=== PATIENT | male | born 1960 | race Two or more races ===

== ENCOUNTER 2019-03-16 21:42 | Emergency (ER) | payer MEDICAID ==
[~2019-03-16] VITALS: Ht 177.8 cm; Wt 72.6 kg
[2019-03-16 21:55] VITALS: BP 122/83
--- NOTE | 2019-03-16 21:55 | NUR ---
ED Nurse Note: Patient was BIBA from home c/o dizziness after standing, pt reports having 2 beers. VSS
--- NOTE | 2019-03-16 22:29 | Emergency Room Report ---
History of Present Illness General Chief Complaint: Dizziness Source: Patient Present Illness HPI Is a 58-year-old male with no significant past medical history. He presents with chief complaint of dizziness. He was at home and said he felt lightheaded. He called 911. Had same symptoms 2 weeks ago and was taken to [facility]. Work-up was negative. He did have two 24 ounces beer tonight. Denies any focal deficit. Denies any slurred speech. Denied room spinning. Allergies: Coded Allergies: No Known Allergies (Unverified , 03/16/19) Patient History Past Medical History: see triage record, old chart reviewed Past Surgical History: other Pertinent Family History: none Social History: Reports: alcohol use Immunizations: other Reviewed Nursing Documentation: PMH: Agreed; PSxH: Agreed Nursing Documentation-PMH History Of Psychiatric Problem: Yes - depression Review of Systems Eye: Denies: eye pain, blurred vision ENT: Denies: ear pain, nose congestion, throat swelling Respiratory: Denies: cough, shortness of breath Cardiovascular: Denies: chest pain, palpitations Gastrointestinal: Denies: abdominal pain, diarrhea, nausea, vomiting Musculoskeletal: Denies: back pain, joint pain Skin: Denies: rash Neurological: Denies: headache, numbness Endocrine: Denies: increased thirst, increased urine Hematologic/Lymphatic: Denies: easy bruising All Other Systems: negative except mentioned in HPI Physical Exam Vital Signs Date Time Temp Pulse Resp B/P (MAP) Pulse Ox O2 Delivery O2 Flow Rate FiO2 03/16/19 21:37 97.7 100 18 122/83 (96) 98 Room Air Vitals normal Sp02 EP Interpretation: reviewed, normal General Appearance: well appearing, no apparent distress, alert, other - intoxicated Head: normocephalic, atraumatic Eyes: bilateral eye PERRL, bilateral eye EOMI ENT: hearing grossly normal, normal pharynx Neck: full range of motion, supple, no meningismus Respiratory: chest non-tender, lungs clear, normal breath sounds Cardiovascular #1: regular rate, rhythm, no murmur Gastrointestinal: normal bowel sounds, non tender, no mass, no organomegaly, no bruit, non-distended Musculoskeletal: back normal, gait/station normal, normal range of motion Psychiatric: mood/affect normal Medical Decision Making Diagnostic Impression: Primary Impression: Dizziness of unknown cause Additional Impression: Alcohol intoxication Qualified Codes: F10.920 - Alcohol use, unspecified with intoxication, uncomplicated ER Course Patient presents with dizziness but walking around without any difficulty. No focal deficit. Blood pressure normal. I suspect this is secondary to alcohol abuse. Will discharge home. Last Vital Signs Date Time Temp Pulse Resp B/P (MAP) Pulse Ox O2 Delivery O2 Flow Rate FiO2 03/16/19 21:37 97.7 100 18 122/83 (96) 98 Room Air Status: improved Disposition: HOME, SELF-CARE Condition: Stable Patient Instructions: Dizziness Additional Instructions: Abstain from alcohol. Follow-up with your doctor in 7 days. Return if worse. Jonn Kelly MD Mar 16, 2019 22:29
[2019-03-16 22:41] VITALS: BP 122/83
--- NOTE | 2019-03-16 22:43 | NUR ---
ED Nurse Note: Pt cleared by health care Provider for discharge. DC instructions/prescription was given and explained to pt and verbalized understanding of teachings. All medical deviecs such as ID band removed. Pt is AAO x4, ambulatory and left with all personal belongings.
== END 2019-03-16 22:45 | disposition home or self-care (01) ==
LOC: EDBD 21:42 → EMR 21:58
DX: R42 Dizziness and giddiness (principal); F10.920 Alcohol use, unspecified with intoxication, uncomplicated; F32.9 Major depressive disorder, single episode, unspecified
CPT/HCPCS: 99282

== ENCOUNTER 2019-05-26 12:56 | Emergency (ER) | payer MEDICAID ==
[~2019-05-26] VITALS: Ht 177.8 cm; Wt 74.8 kg
--- NOTE | 2019-05-26 12:57 | NUR ---
ED Nurse Note: Patient brought into ED from street, patient was walking on the street way to his home and sustained a abrasiona nd laceration on his chin and lower lip patient is alert awake x4 breathing unlabred and even, speaking in full sentences, patient reports he tripped and fell. patient has a cane and left knee brace. patient placed on a sole molding machine operator, stable vital signs.
--- NOTE | 2019-05-26 13:19 | Emergency Room Report ---
History of Present Illness General Chief Complaint: Multiple Trauma/Fall Source: Patient Present Illness HPI Patient presents with complaints of trauma and fall resulting in facial injuries patient has abrasion And trauma to the lower lip patient does consider himself an alcoholic drinks on a daily basis Reports that while trying to lift a laundry bag he fell forward injuring the facial area Patient also reports that he has an injured right knee which 'sometimes gives out on me' Denies any focal weakness denies any visual changes denies any vomiting or diarrhea Allergies: Coded Allergies: No Known Allergies (Unverified , 03/16/19) Patient History Past Medical History: see triage record Reviewed Nursing Documentation: PMH: Agreed; PSxH: Agreed Nursing Documentation-PM Past Medical History: No History, Except For History Of Psychiatric Problem: Yes - depression Review of Systems All Other Systems: negative except mentioned in HPI Physical Exam Vital Signs Date Time Temp Pulse Resp B/P (MAP) Pulse Ox O2 Delivery O2 Flow Rate FiO2 05/26/19 12:47 99.0 91 18 91/63 (72) 99 Room Air Sp02 EP Interpretation: reviewed, normal General Appearance: no apparent distress Head: other - Abrasion to the lower chin, small puncture wound to the lower lip secondarily healing Eyes: bilateral eye PERRL ENT: normal pharynx, no angioedema Neck: supple Respiratory: lungs clear, no respiratory distress, no retraction Cardiovascular #1: regular rate, rhythm Gastrointestinal: non tender Musculoskeletal: normal inspection, other - Patient does have a knee brace on the right knee Neurologic: alert, oriented x3, responsive Psychiatric: normal inspection Skin: other - As above Lymphatic: no adenopathy Medical Decision Making Diagnostic Impression: Primary Impression: Fall Additional Impression: Abrasion ER Course patient was asked with complaints of fall and facial trauma Patient provides a fairly specific description of his right leg giving out which happens intermittently also reports that if he drinks it happens more often He does consider himself an alcoholic Denies any lapse of consciousness denies any chest pain denies any focal weakness at this time Patient had baseline blood work initiated given multiple differentials of electrolyte pathology versus other traumatic injuries blood work at baseline levels,showing signs of pancytopenia consistent with his alcohol disease Imaging does not reveal any acute pathology I felt that given the patient's history of alcohol abuse and trauma He did meet criteria for acute imaging patient asking to be let go Is at baseline mental status GCS 15 speaking clearly And is dispositioned for close outpatient follow-up CBC: pancytopenia Chemistry: potassium 3.4 minimal decrease Rhythm Strip Diag. Results EP Interpretation: yes Rate: 66 Rhythm: NSR, no PVC's, no ectopy Last Vital Signs Date Time Temp Pulse Resp B/P (MAP) Pulse Ox O2 Delivery O2 Flow Rate FiO2 05/26/19 12:47 99.0 91 18 91/63 (72) 99 Room Air Status: improved Disposition: HOME, SELF-CARE Condition: Improved Scripts Unable to Obtain Active Prescriptions or Reported Meds Additional Instructions: Patient was provided with discharge paperwork, educated about findings, verbalizes understanding will require close follow-up in the next 2-3 days with primary physician otherwise return to the ER with any worsening symptoms Isela De DO May 26, 2019 13:19
--- NOTE | 2019-05-26 13:41 | NUR ---
ED Nurse Note: patient went to CT head
--- NOTE | 2019-05-26 14:25 | Diagnostic Imaging Report ---
Indications: Headache, status post trauma Technique: Spiral acquisitions obtained through the brain. Angled axial and coronal 5 x 5 mm slices were reconstructed. Total dose length product 1457 mGycm. CTDI vol(s) 62 mGy. Dose reduction achieved using automated exposure control Comparison: None. Findings: No acute intracranial hemorrhage or edema. No mass effect nor midline shift. There is a small patent cava septum pellucidum incidentally noted. 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 There is minimal age-related enlargement of the ventricles and extra axial CSF spaces. There is minimal periventricular deep white matter low-attenuation, consistent with chronic microvascular ischemic change. The orbits and sinuses are unremarkable. The mastoids are clear. The calvarium is intact. Impression: Chronic and age-related changes Negative for acute intracranial bleed or mass effect The CT scanner at [facility] is accredited by the [employer] and the scans are performed using protocols designed to limit radiation exposure to as low as reasonably achievable to attain images of sufficient resolution adequate for diagnostic evaluation.
[2019-05-26 14:30] LABS: HEMATOCRIT 35.9 % (42.0-52.0); HEMOGLOBIN 12.7 G/DL (14.2-18.0); MEAN CORPUSCULAR VOLUME 88 FL (80-99); PLATELET COUNT 99 K/UL (150-450); RED BLOOD COUNT 4.08 M/UL (4.70-6.10); RED CELL DISTRIBUTION WIDTH 11.2 % (11.6-14.8)
[2019-05-26] MEDS ORDERED: Neosporin Oint Ud Pkt TOPIC ONE ×2 (14:32→14:45)
[2019-05-26 14:33] VITALS: BP 108/78
--- NOTE | 2019-05-26 14:36 | NUR ---
ED Nurse Note: lower chin abrasion cleaned with normal salined and neopsorin applied as ordered by Dr. De.
[2019-05-26 14:42] LABS: ANION GAP 12 mmol/L (5-15); BLOOD UREA NITROGEN 13 mg/dL (7-18); CALCIUM 8.8 MG/DL (8.5-10.1); CARBON DIOXIDE 25 MMOL/L (21-32); CHLORIDE 104 MMOL/L (98-107); POTASSIUM 3.4 MMOL/L (3.5-5.1); SODIUM 141 MMOL/L (136-145)
[2019-05-26 15:10] VITALS: BP 108/78
--- NOTE | 2019-05-26 15:10 | NUR ---
ER DISCHARGE NOTE: Patient is cleared to be discharged per [facility], pt is aox4, on room air, with stable vital signs. pt was given dc and prescription instructions, pt was able to verbalize understanding, pt id band and iv site removed without complications. pt is able to ambulate with steady gait. pt took all belongings.
== END 2019-05-26 15:10 | disposition home or self-care (01) ==
LOC: EDBD 12:56 → EMR 13:20
DX: S00.81XA Abrasion of other part of head, initial encounter (principal); F32.9 Major depressive disorder, single episode, unspecified; S09.93XA Unspecified injury of face, initial encounter; W19.XXXA Unspecified fall, initial encounter; Y92.9 Unspecified place or not applicable
CPT/HCPCS: 36415; 70450; 80048; 85007; 85025; Z7502; 99284

== ENCOUNTER 2019-06-19 10:24 | Emergency (ER) | payer MEDICAID ==
[~2019-06-19] VITALS: Ht 177.8 cm; Wt 72.6 kg
[2019-06-19] MEDS ORDERED: NEURONTIN100 MG ORAL (10:28)
[2019-06-19] MEDS ORDERED: REMERON15 M1 ORAL (10:28)
[2019-06-19] MEDS ORDERED: SIMVASTATIN5 MG ORAL (10:28)
[2019-06-19] MEDS ORDERED: ZYLOPRIM100 MG ORAL (10:28)
[2019-06-19 10:48] LABS: BASOPHILS % (AUTO) 1.3 % (0.0-2.0); EOSINOPHILS % (AUTO) 1.2 % (0.0-3.0); HEMATOCRIT 35.4 % (42.0-52.0); HEMOGLOBIN 12.3 G/DL (14.2-18.0); LYMPHOCYTES % (AUTO) 46.1 % (20.0-45.0); MEAN CORPUSCULAR VOLUME 90 FL (80-99); MONOCYTES % (AUTO) 8.9 % (1.0-10.0); NEUTROPHILS % (AUTO) 42.4 % (45.0-75.0); PLATELET COUNT 109 K/UL (150-450); RED BLOOD COUNT 3.92 M/UL (4.70-6.10); RED CELL DISTRIBUTION WIDTH 12.2 % (11.6-14.8); WHITE BLOOD COUNT 3.8 K/UL (4.8-10.8)
--- NOTE | 2019-06-19 10:49 | NUR ---
ED Nurse Note: Patient brought in by ambulance from home due to feeling weak. Patient admitted to drinking alcohol everyday. + smell of alcohol. Patient reports no head injury. No visible head trauma noted. patient awake, alert, oriented x 4. Able to follow commands. Regular, unlabored breathing noted. Reports no N/V or BM with blood. Placed patient on compliance monitor. Call light within reach. Patient has hospital socks on. Instructed patient to stay in bed and asked patient to call for help if he needs to be OOB. Patient verbalized understanding of it. Bed in lowest position.
[2019-06-19 11:00] LABS: ANION GAP 8 mmol/L (5-15); BLOOD UREA NITROGEN 13 mg/dL (7-18); CALCIUM 8.5 MG/DL (8.5-10.1); CARBON DIOXIDE 32 MMOL/L (21-32); CHLORIDE 108 MMOL/L (98-107); CREATININE 0.9 MG/DL (0.55-1.30); POTASSIUM 3.5 MMOL/L (3.5-5.1); SODIUM 148 MMOL/L (136-145)
[2019-06-19 11:01] VITALS: BP 137/88
--- NOTE | 2019-06-19 11:02 | NUR ---
ED Nurse Note: Patient arrived here right knee brace. Per patient, patient had right joint knee replacement.
--- NOTE | 2019-06-19 11:05 | NUR ---
ED Nurse Note: sandwitches and juices provide as requested.
[2019-06-19 11:06] LABS: ALANINE AMINOTRANSFERASE 58 U/L (12-78); ALBUMIN 3.4 G/DL (3.4-5.0); ALBUMIN/GLOBULIN RATIO 0.9 (1.0-2.7); ALKALINE PHOSPHATASE 181 U/L (46-116); ASPARTATE AMINO TRANSFERASE 125 U/L (15-37); BILIRUBIN,TOTAL 0.5 MG/DL (0.2-1.0)
[2019-06-19] MEDS ORDERED: Metoclopramide 10mg/2ml Inj IVP ONE (11:30)
[2019-06-19] MEDS ORDERED: Meclizine 25mg tab ORAL ONE (11:30)
--- NOTE | 2019-06-19 11:31 | NUR ---
ED Nurse Note: Called concrete technician for CT head.
--- NOTE | 2019-06-19 11:44 | NUR ---
ED Nurse Note: Report given to OSMANY Rees. Dina, transporter here for CT head.
[2019-06-19 13:00] VITALS: BP 128/75
[2019-06-19] MEDS ORDERED: ONDANSETRON ODT4 MG BC (13:19)
[2019-06-19] MEDS ORDERED: RANITIDINE HCL150 MG ORAL (13:19)
--- NOTE | 2019-06-19 14:02 | Emergency Room Report ---
History of Present Illness General Chief Complaint: Generalized Weakness Source: Patient Present Illness HPI 61-year-old male presents ED for evaluation. Brought in by EMS from home. Complaining of dizziness started today. States he has been drinking alcohol. Notes nausea, denies vomiting. Denies chest pain. States he has fallen a few times. Questionable LOC. No other aggravating relieving factors. Denies any other associated symptoms Allergies: Coded Allergies: No Known Allergies (Unverified , 03/16/19) Patient History Past Medical History: HTN, psych hx Past Surgical History: none Pertinent Family History: none Social History: Reports: alcohol use; Denies: smoking, drug use Immunizations: UTD Reviewed Nursing Documentation: PMH: Agreed; PSxH: Agreed Nursing Documentation-PMH Hx Hypertension: Yes - HYPERLIPIDEMIA History Of Psychiatric Problem: Yes Review of Systems All Other Systems: negative except mentioned in HPI Physical Exam Vital Signs Date Time Temp Pulse Resp B/P (MAP) Pulse Ox O2 Delivery O2 Flow Rate FiO2 06/19/19 10:20 97.5 96 19 116/85 (95) 98 Room Air Sp02 EP Interpretation: reviewed, normal General Appearance: no apparent distress, alert, GCS 15, non-toxic Head: normocephalic, atraumatic Eyes: bilateral eye normal inspection, bilateral eye PERRL ENT: hearing grossly normal, normal pharynx, no angioedema, normal voice Neck: full range of motion, supple/symm/no masses Respiratory: chest non-tender, lungs clear, normal breath sounds, speaking full sentences Cardiovascular #1: regular rate, rhythm, no edema Cardiovascular #2: 2+ carotid (R), 2+ carotid (L), 2+ radial (R), 2+ radial (L) , 2+ dorsalis pedis (R), 2+ dorsalis pedis (L) Gastrointestinal: normal bowel sounds, non tender, soft, non-distended, no guarding, no rebound Rectal: deferred Genitourinary: normal inspection, no CVA tenderness Musculoskeletal: back normal, normal range of motion, gait/station normal, non- tender Neurologic: alert, motor strength/tone normal, oriented x3, sensory intact, responsive, speech normal Psychiatric: judgement/insight normal, memory normal, mood/affect normal, no suicidal/homicidal ideation Reflexes: 3+ bicep (R), 3+ bicep (L), 3+ tricep (R), 3+ tricep (L), 3+ knee (R) , 3+ knee (L) Lymphatic: no adenopathy Medical Decision Making Diagnostic Impression: Primary Impression: Alcohol intoxication Qualified Codes: F10.920 - Alcohol use, unspecified with intoxication, uncomplicated ER Course Hospital Course 59 yo M presents to ED c/o dizziness, + ETOH. ? fall Differential diagnoses include: Psychosis, EtOH, drug abuse Clinical course patient placed on stretcher. On monitor car operator. After initial history and physical ordered labs, IV fluids, EKG, meds, CT brain. Labs reviewed-electrolytes okay, no leukocytosis, hemoglobin/hematocrit stable, ETOH > 300 EKG - RBBB, no acute ischemic changes interpreted by me CT brain shows no acute pathology On reassessment symptoms improved. Discussed findings with patient will discharge to home. Safe for discharge for close outpatient follow-up. I will provide referrals. Family at bedside to take patient home i. I feel this is a highly complex case requiring extensive working including EKG/Rhythm strip, Xray/CT/US, Blood/urine lab work, repeat exams while in ED, and administration of strong opiates/narcotics for pain control, admission to hospital or close patient follow up. Diagnosis - alcohol intoxication Stable and discharged to home. Followup with PMD. Return to ED if symptoms recur or worsen Labs Test 06/19/19 10:30 White Blood Count 3.8 K/UL (4.8-10.8) Red Blood Count 3.92 M/UL (4.70-6.10) Hemoglobin 12.3 G/DL (14.2-18.0) Hematocrit 35.4 % (42.0-52.0) Mean Corpuscular Volume 90 FL (80-99) Mean Corpuscular Hemoglobin 31.4 PG (27.0-31.0) Mean Corpuscular Hemoglobin Concent 34.8 G/DL (32.0-36.0) Red Cell Distribution Width 12.2 % (11.6-14.8) Platelet Count 109 K/UL (150-450) Mean Platelet Volume 6.3 FL (6.5-10.1) Neutrophils (%) (Auto) 42.4 % (45.0-75.0) Lymphocytes (%) (Auto) 46.1 % (20.0-45.0) Monocytes (%) (Auto) 8.9 % (1.0-10.0) Eosinophils (%) (Auto) 1.2 % (0.0-3.0) Basophils (%) (Auto) 1.3 % (0.0-2.0) Sodium Level 148 MMOL/L (136-145) Potassium Level 3.5 MMOL/L (3.5-5.1) Chloride Level 108 MMOL/L (98-107) Carbon Dioxide Level 32 MMOL/L (21-32) Anion Gap 8 mmol/L (5-15) Blood Urea Nitrogen 13 mg/dL (7-18) Creatinine 0.9 MG/DL (0.55-1.30) Estimat Glomerular Filtration Rate > 60 mL/min (>60) Glucose Level 119 MG/DL (74-106) Calcium Level 8.5 MG/DL (8.5-10.1) Total Bilirubin 0.5 MG/DL (0.2-1.0) Aspartate Amino Transf (AST/SGOT) 125 U/L (15-37) Alanine Aminotransferase (ALT/SGPT) 58 U/L (12-78) Alkaline Phosphatase 181 U/L (46-116) Total Protein 7.4 G/DL (6.4-8.2) Albumin 3.4 G/DL (3.4-5.0) Globulin 4.0 g/dL Albumin/Globulin Ratio 0.9 (1.0-2.7) Salicylates Level 2.2 ug/mL (2.8-20) Urine Opiates Screen Negative (NEGATIVE) Acetaminophen Level < 2 MCG/ML (10-30) Urine Barbiturates Screen Negative (NEGATIVE) Phencyclidine (PCP) Screen Negative (NEGATIVE) Urine Amphetamines Screen Negative (NEGATIVE) Urine Benzodiazepines Screen Negative (NEGATIVE) Urine Cocaine Screen Negative (NEGATIVE) Urine Marijuana (THC) Screen Negative (NEGATIVE) Serum Alcohol 360 mg/dL EKG Diagnostic Results Rate: normal Rhythm: NSR ST Segments: other - RBBB ASA given to the pt in ED: No Rhythm Strip Diag. Results EP Interpretation: yes Rhythm: NSR, no PVC's, no ectopy CT/MRI/US Diagnostic Results CT/MRI/US Diagnostic Results : Imaging Test Ordered: CT Head Impression no acute process Last Vital Signs Date Time Temp Pulse Resp B/P (MAP) Pulse Ox O2 Delivery O2 Flow Rate FiO2 06/19/19 13:00 95 19 128/75 96 Room Air 06/19/19 11:01 96.8 Status: improved Disposition: HOME, SELF-CARE Condition: Stable Scripts Ranitidine Hcl* (ZANTAC*) 150 Mg Tablet 150 MG ORAL TWICE A DAY, #30 TAB Prov: Rod Ro MD 06/19/19 Ondansetron Odt* (ZOFRAN ODT*) 4 Mg Tab.rapdis 4 MG BC EVERY 6 HOURS PRN for Nausea & Vomiting, #20 TAB 0 Refills Prov: Rod Ro MD 06/19/19 Referrals: NON PHYSICIAN (PCP) [facility] Patient Instructions: Alcohol Intoxication, [id number] Rod Ro MD Jun 19, 2019 14:02
== END 2019-06-19 13:00 | disposition home or self-care (01) ==
LOC: EDBD 10:24 → EMR 10:41
DX: F10.920 Alcohol use, unspecified with intoxication, uncomplicated (principal); I10 Essential (primary) hypertension; E78.5 Hyperlipidemia, unspecified
CPT/HCPCS: 36415; 70450; 80053; 80307; 85025; 96361; 96374; 96375; G0480; G0481; Z7502; 99284

== ENCOUNTER 2019-07-12 20:08 | Emergency (ER) | payer MEDICAID ==
[~2019-07-12] VITALS: Ht 180.3 cm; Wt 68.0 kg
[~2019-07-12 20:08] MED LIST: NEURONTIN100 MG ORAL; ONDANSETRON ODT4 MG BC; RANITIDINE HCL150 MG ORAL; REMERON15 M1 ORAL; SIMVASTATIN5 MG ORAL; ZYLOPRIM100 MG ORAL
[2019-07-12 20:10] VITALS: BP 109/56
--- NOTE | 2019-07-12 20:10 | NUR ---
ED Nurse Note: Pt brought in from home by JANEE RA 67 for c/o weakness. Pt states both legs were feeling weak and numb and he was unable to stand. Per JANEE, pt was found on the ground at home. Pt has 20g IV on right forearm placed by JANEE on scene. Pt brought into ED with 500cc bag of NS infusing, given by LAFJacky. Pt is aaox4, breathing is normal and unlabored, no cardiac distress noted. Pt did come into ED with soiled pants, pt states he was unable to get to the restroom in time due to weakness. Pt placed on processing lead, pt cleaned and placed in gown for comfort. Will continue to monitor.
--- NOTE | 2019-07-12 20:15 | NUR ---
ED Nurse Note: Right knee brace noted.
--- NOTE | 2019-07-12 20:15 | NUR ---
ED Nurse Note: Pt denies any trauma or hitting his head. Pt also reports numbness in bilateral hands.
--- NOTE | 2019-07-12 20:26 | Emergency Room Report ---
History of Present Illness General Chief Complaint: Generalized Weakness Source: Patient (Baltazar Nino MD) Present Illness HPI Patient is a 59-year-old male who presents after increased generalized weakness. He was reportedly increased difficulty with respirations. Reportedly had a syncopal episode at home. He reports having increased bilateral leg cramping and difficulty with movements. He denies prior history of seizures. Reports being a smoker. Denies any prior cardiac history. (Baltazar Nino MD) Allergies: Coded Allergies: No Known Allergies (Unverified , 03/16/19) Patient History Past Medical History: see triage record Reviewed Nursing Documentation: PMH: Agreed; PSxH: Agreed (Baltazar Nino MD) Nursing Documentation-PMH Past Medical History: No History, Except For Hx Hypertension: Yes - HYPERLIPIDEMIA (Baltazar Nino MD) Review of Systems All Other Systems: negative except mentioned in HPI (Baltazar Nino MD) Physical Exam Vital Signs Date Time Temp Pulse Resp B/P (MAP) Pulse Ox O2 Delivery O2 Flow Rate FiO2 07/12/19 20:08 98.6 104 22 109/56 (73) 97 Room Air Sp02 EP Interpretation: reviewed, normal General Appearance: normal inspection, well appearing, no apparent distress, alert, GCS 15, thin, Chronically Ill Head: atraumatic ENT: normal ENT inspection, hearing grossly normal, normal voice Neck: normal inspection, full range of motion, supple, no bony tend Respiratory: normal inspection, lungs clear, normal breath sounds, no respiratory distress, no retraction, no wheezing Cardiovascular #1: regular rate, rhythm, no edema Gastrointestinal: normal inspection, normal bowel sounds, non tender, soft, no guarding, no hernia Genitourinary: no CVA tenderness Musculoskeletal: normal inspection, back normal, normal range of motion Neurologic: alert, lead javascript engineer III-XII nml as tested, responsive, speech normal, normal inspection, other - tremor Psychiatric: normal inspection, judgement/insight normal, mood/affect normal Skin: no rash (Baltazar Nino MD) Medical Decision Making Diagnostic Impression: Primary Impression: Alcohol withdrawal seizure without complication Additional Impressions: COPD (chronic obstructive pulmonary disease) Qualified Codes: J44.9 - Chronic obstructive pulmonary disease, unspecified CAP (community acquired pneumonia) Qualified Codes: J18.9 - Pneumonia, unspecified organism Alcoholic fatty liver Pulmonary nodules ER Course Patient presented after possible syncopal episode. Differential diagnosis includes not limited to syncope, anemia, aortic aneurysm, myocardial infarction among others. EKG interpreted by me showed normal sinus rhythm with a right bundle branch block with diffuse T wave inversion. Patient was placed on a monitoring tech. He was given IV fluids. CT angiogram of the chest was ordered due to the patient's recent syncope and lower extremity complaints.Patient will be endorsed to Dr. Kelly pending CT imaging. Labs Test 07/12/19 21:00 White Blood Count 5.4 K/UL (4.8-10.8) Red Blood Count 3.56 M/UL (4.70-6.10) Hemoglobin 11.3 G/DL (14.2-18.0) Hematocrit 32.2 % (42.0-52.0) Mean Corpuscular Volume 90 FL (80-99) Mean Corpuscular Hemoglobin 31.7 PG (27.0-31.0) Mean Corpuscular Hemoglobin Concent 35.0 G/DL (32.0-36.0) Red Cell Distribution Width 13.0 % (11.6-14.8) Platelet Count 217 K/UL (150-450) Mean Platelet Volume 5.7 FL (6.5-10.1) Neutrophils (%) (Auto) 67.4 % (45.0-75.0) Lymphocytes (%) (Auto) 16.6 % (20.0-45.0) Monocytes (%) (Auto) 12.6 % (1.0-10.0) Eosinophils (%) (Auto) 0.9 % (0.0-3.0) Basophils (%) (Auto) 2.5 % (0.0-2.0) Prothrombin Time 10.7 SEC (9.30-11.50) Prothromb Time International Ratio 1.0 (0.9-1.1) Activated Partial Thromboplast Time 25 SEC (23-33) (Baltazar Nino MD) ER Course This patient was signed out to me. Please see Dr. Nino dictation for the full H&P. Patient presents with seizure. He said he is an alcoholic. His alcohol level is only 83. I suspect this is alcohol withdrawal seizure. He also has a cough. His CT chest showed emphysema with left lower lobe infiltrate. He also has nodules in his lungs. This may be secondary to infection or tumor. Patient able for outpatient work-up. Explained this to the patient. He expressed understanding. He was tremulous but better after Ativan and Librium. He is willing to stop drinking. Will discharge home. (Jonn Kelly MD) CT/MRI/US Diagnostic Results CT/MRI/US Diagnostic Results : Imaging Test Ordered: CT chest, abdomen and pelvis Impression Read by radiologist. CT chest showed COPD. No PE. He has multiple pulmonary nodules. Left lower lobe infiltrate. CT abdomen showed hepatomegaly with fatty liver. (Jonn Kelly MD) Last Vital Signs Date Time Temp Pulse Resp B/P (MAP) Pulse Ox O2 Delivery O2 Flow Rate FiO2 07/12/19 20:08 98.6 104 22 109/56 (73) 97 Room Air (Baltazar Nino MD) Status: improved (Jonn Kelly MD) Disposition: HOME, SELF-CARE Condition: Stable Scripts Chlordiazepoxide (Chlordiazepoxide HCl) 25 Mg Capsule 25 MG ORAL THREE TIMES A DAY, #15 CAP 0 Refills Prov: Jonn Kelly MD 07/13/19 Levofloxacin* (LEVAQUIN*) 500 Mg Tablet 500 MG ORAL DAILY, #7 TAB Prov: Jonn Kelly MD 07/13/19 Albuterol Sulfate* (ALBUTEROL SULFATE MDI*) 8.5 Gm Hfa.aer.ad 2 PUFF INH Q4H PRN for cough/wheezing, #1 EA 0 Refills Prov: Jonn Kelly MD 07/13/19 Additional Instructions: Abstain from alcohol. Go to rehab. Follow-up with your doctor in 7 days. You have multiple pulmonary nodules in your lung. This will need further work-up. You may need to be referral to a specialist. Return if symptoms worsen. Baltazar Nino MD Jul 12, 2019 20:26 Jonn Kelly MD Jul 13, 2019 04:00
[2019-07-12] MEDS ORDERED: Omnipaue 350mg/ml 100ml vial INJ PRN ×2 (20:30)
--- NOTE | 2019-07-12 20:50 | NUR ---
ED Nurse Note: Blood drawn by RN and sent to lab.
[2019-07-12 21:16] LABS: BASOPHILS % (AUTO) 2.5 % (0.0-2.0); EOSINOPHILS % (AUTO) 0.9 % (0.0-3.0); HEMATOCRIT 32.2 % (42.0-52.0); HEMOGLOBIN 11.3 G/DL (14.2-18.0); LYMPHOCYTES % (AUTO) 16.6 % (20.0-45.0); MEAN CORPUSCULAR VOLUME 90 FL (80-99); MONOCYTES % (AUTO) 12.6 % (1.0-10.0); NEUTROPHILS % (AUTO) 67.4 % (45.0-75.0); PLATELET COUNT 217 K/UL (150-450); RED BLOOD COUNT 3.56 M/UL (4.70-6.10); WHITE BLOOD COUNT 5.4 K/UL (4.8-10.8)
[2019-07-12 21:34] LABS: ANION GAP 9 mmol/L (5-15); BLOOD UREA NITROGEN 14 mg/dL (7-18); CALCIUM 8.6 MG/DL (8.5-10.1); CARBON DIOXIDE 30 MMOL/L (21-32); CHLORIDE 110 MMOL/L (98-107); CREATININE 1.3 MG/DL (0.55-1.30); POTASSIUM 4.1 MMOL/L (3.5-5.1); SODIUM 149 MMOL/L (136-145)
--- NOTE | 2019-07-12 21:37 | NUR ---
ED Nurse Note: Pt able to urinate using urinal, urine specimen collected and sent to lab.
[2019-07-12 21:45] LABS: ALANINE AMINOTRANSFERASE 26 U/L (12-78); ALBUMIN 2.9 G/DL (3.4-5.0); ALBUMIN/GLOBULIN RATIO 0.8 (1.0-2.7); ALKALINE PHOSPHATASE 125 U/L (46-116); ASPARTATE AMINO TRANSFERASE 72 U/L (15-37); BILIRUBIN,TOTAL 0.3 MG/DL (0.2-1.0)
[2019-07-12] MEDS ORDERED: LORazepam Inj 2mg/ml 1ml IV ONE (21:45)
[2019-07-12 21:46] LABS: APPEARANCE,URINE CLEAR; BILIRUBIN, URINE NEGATIVE (NEGATIVE); COLOR,URINE PALE YELLOW; GLUCOSE, URINE (UA) NEGATIVE (NEGATIVE); KETONES,URINE NEGATIVE (NEGATIVE); LEUKOCYTE ESTERASE ,URINE NEGATIVE (NEGATIVE); NITRITE,URINE NEGATIVE (NEGATIVE); PH,URINE 7 (4.5-8.0); PROTEIN,URINE NEGATIVE (NEGATIVE); UROBILINOGEN,URINE 1 MG/DL (0.0-1.0)
--- NOTE | 2019-07-12 21:51 | NUR ---
ED Nurse Note: Pt taken to CT via [facility] by adarsh dugan.
[2019-07-12 22:05] VITALS: BP 145/91
--- NOTE | 2019-07-12 22:05 | NUR ---
ED Nurse Note: Pt returned from CT. Pt is in no acute distress, resting comfortably in bed. Will continue to monitor. Vss as charted.
--- NOTE | 2019-07-12 23:52 | Diagnostic Imaging Report ---
Indication: Chest and abdominal pain Technique: Continuous helical transaxial imaging of the chest, abdomen and pelvis was obtained from the thoracic inlet to the pubic symphysis during rapid intravenous contrast administration. Arterial phase of enhancement obtained. Coronal 2-D reformats were also obtained and maximum intensity projection images in multiple planes. Study obtained in a Siemens sensation [address] Total Dose length Product (DLP): 797.[address] Dose Index Volume (CTDIvol): 59.5 mGy Comparison: None Findings: CTA CHEST: There is no evidence of pulmonary embolus, aortic dissection or aneurysm. The heart is unremarkable. No adenopathy or abnormal fluid collections are identified. Paraseptal blebs and moderate emphysematous changes with areas of scattered hyperlucency demonstrated within the lungs primarily in the upper lobes. There is left posterior basal atelectasis present. No consolidation identified. CTA abdomen pelvis: In the lower part of the abdominal aorta just above the bifurcation there is a somewhat saccular-appearing aneurysm measuring about 3.7 cm. Aorta is calcified. Major branches of the abdominal aorta appear widely patent. The iliac arteries are unremarkable. Liver enhancement is patchy with areas of low attenuation involving the lateral segment the left lobe as well as the medial segment. These may be areas of focal fatty infiltration. There is generalized low attenuation of the liver. The gallbladder is contracted and not evaluated well. There is no biliary ductal dilatation identified. No hydronephrosis seen. No free fluid identified. Bowel gas pattern is nonobstructive. Normal appendix noted. Urinary bladder is unremarkable. There is no adrenal mass. IMPRESSION: No evidence of pulmonary embolus or aortic dissection. Saccular aneurysm distal abdominal aorta maximum diameter of 3.7 cm. Low attenuation of the liver with areas of more prominent low-attenuation probably focal fat. Pulmonary emphysema/COPD. [facility] has communicated the preliminary results to the Emergency Department. Their findings are largely concordant with this report. The CT scanner at [facility] is accredited by the [employer] and the scans are performed using dose optimization techniques as appropriate to a performed exam including Automatic Exposure control.
[2019-07-13] MEDS ORDERED: chlordiazePOXIDE 25mg Cap ORAL ONE
[2019-07-13] MEDS ORDERED: Azithromycin 250mg tab ORAL ONE (00:15)
[2019-07-13] MEDS ORDERED: cefTRIAXone 1 GM in NS 55 ML IVPB ONE (00:15)
--- NOTE | 2019-07-13 01:00 | NUR ---
ED Nurse Note: Pt provided nourishment and warm blanket for comfort.
[2019-07-13 02:42] VITALS: BP 140/99
[2019-07-13] MEDS ORDERED: LEVAQUIN500 MG ORAL (03:59)
[2019-07-13] MEDS ORDERED: ALBUTEROL SULF8.5 GM INH (03:59)
[2019-07-13] MEDS ORDERED: LIBRIUM25 MG ORAL (03:59)
[2019-07-13 05:45] VITALS: BP 146/92
--- NOTE | 2019-07-13 05:45 | NUR ---
ER DISCHARGE NOTE: Patient is cleared to be discharged per ERMD, pt is aox4, on room air, with stable vital signs. pt was given dc and prescription instructions, pt was able to verbalize understanding, pt id band and iv site removed without complications. pt stated he will call his daughter to pick him up. pt took all belongings.
== END 2019-07-13 05:45 | disposition home or self-care (01) ==
LOC: EDBD 20:08 → EDUNIT# 20:08 → EMR 20:43
DX: F10.239 Alcohol dependence with withdrawal, unspecified (principal); J44.9 Chronic obstructive pulmonary disease, unspecified; J18.9 Pneumonia, unspecified organism; K76.0 Fatty (change of) liver, not elsewhere classified; R91.8 Other nonspecific abnormal finding of lung field; R56.9 Unspecified convulsions; F17.200 Nicotine dependence, unspecified, uncomplicated; E78.5 Hyperlipidemia, unspecified; I45.10 Unspecified right bundle-branch block
CPT/HCPCS: 36415; 71275; 74174; 80053; 80307; 81001; 83690; 83880; 84443; 84484; 85025; 85610; 85730; 93005; 96365; 96375; G0480; J0696; Q0144; Q9967; Z7502; 99284

== ENCOUNTER 2019-07-26 22:53 | Emergency (ER) | payer MEDICAID ==
[~2019-07-26] VITALS: Ht 182.9 cm; Wt 77.1 kg
[~2019-07-26 22:53] MED LIST changes: +ALBUTEROL SULF8.5 GM INH; +LEVAQUIN500 MG ORAL; +LIBRIUM25 MG ORAL
[2019-07-26 23:00] VITALS: BP 170/86
--- NOTE | 2019-07-26 23:00 | NUR ---
ED Nurse Note: Pt brought in by JANEE Blevins from home for c/o R sided back pain onset 5 days ago. Pt states pain is 3/10, aching in nature and is exacerbated with movement. Pt denies any injury or trauma to back. Pt is ambulatory with cane. Knee brace noted to R leg. Pt is aaox4, no cardiac or respiratory distress noted. Will continue to monitor.
--- NOTE | 2019-07-26 23:03 | Emergency Room Report ---
History of Present Illness General Chief Complaint: Right flank pain Source: Patient Present Illness HPI 59-year-old male presents with right flank pain that started 5 days ago no inciting factor, aggravated with movement alleviated with rest severity is moderate, intermittent, he describes it is achy he is a former smoker no fevers no chills no dysuria, no diarrhea patient presents for evaluation Allergies: Coded Allergies: No Known Allergies (Unverified , 03/16/19) Patient History Past Medical History: see triage record Social History: Reports: smoking Reviewed Nursing Documentation: PMH: Agreed; PSxH: Agreed Nursing Documentation-PMH Hx Hypertension: Yes - HYPERLIPIDEMIA Review of Systems All Other Systems: negative except mentioned in HPI Physical Exam Sp02 EP Interpretation: reviewed, normal General Appearance: well appearing, no apparent distress, alert Head: normocephalic, atraumatic Eyes: bilateral eye PERRL, bilateral eye EOMI ENT: uvula midline, moist mucus membranes Neck: supple, thyroid normal, supple/symm/no masses Respiratory: lungs clear, no respiratory distress, no retraction, no accessory muscle use Cardiovascular #1: normal peripheral pulses, regular rate, rhythm, no edema, no gallop, no murmur Gastrointestinal: non tender, soft, no guarding, no rebound Musculoskeletal: normal inspection, other - Right lower back shoe operator to palpation Neurologic: alert, oriented x3 Psychiatric: mood/affect normal Skin: no rash, warm/dry Medical Decision Making Diagnostic Impression: Primary Impression: Low back pain Qualified Codes: M54.5 - Low back pain ER Course 59-year-old male presents with right flank pain, differential diagnosis includes muscle strain, AAA, diverticulitis, appendicitis CT scan shows no change in his aneurysm no leakage Patient felt better with pain control and Lidoderm patch Counseled patient about aneurysm and following up with vascular surgery Disposition home with return precautions no red flags of back pain Laboratory Tests Test 07/26/19 23:15 07/26/19 23:30 White Blood Count 4.0 K/UL (4.8-10.8) L Red Blood Count 3.85 M/UL (4.70-6.10) L Hemoglobin 12.4 G/DL (14.2-18.0) L Hematocrit 35.6 % (42.0-52.0) L Mean Corpuscular Volume 93 FL (80-99) Mean Corpuscular Hemoglobin 32.3 PG (27.0-31.0) H Mean Corpuscular Hemoglobin Concent 34.9 G/DL (32.0-36.0) Red Cell Distribution Width 12.6 % (11.6-14.8) Platelet Count 202 K/UL (150-450) Mean Platelet Volume 6.1 FL (6.5-10.1) L Neutrophils (%) (Auto) 48.1 % (45.0-75.0) Lymphocytes (%) (Auto) 40.6 % (20.0-45.0) Monocytes (%) (Auto) 8.1 % (1.0-10.0) Eosinophils (%) (Auto) 1.8 % (0.0-3.0) Basophils (%) (Auto) 1.4 % (0.0-2.0) Prothrombin Time 10.3 SEC (9.30-11.50) Prothrombin Time INR 1.0 (0.9-1.1) PTT 25 SEC (23-33) Sodium Level 149 MMOL/L (136-145) H Potassium Level 3.2 MMOL/L (3.5-5.1) L Chloride Level 110 MMOL/L (98-107) H Carbon Dioxide Level 31 MMOL/L (21-32) Anion Gap 8 mmol/L (5-15) Blood Urea Nitrogen 17 mg/dL (7-18) Creatinine 0.8 MG/DL (0.55-1.30) Estimate Glomerular Filtration Rate > 60 mL/min (>60) Glucose Level 92 MG/DL (74-106) Calcium Level 8.6 MG/DL (8.5-10.1) Total Bilirubin 0.3 MG/DL (0.2-1.0) Aspartate Amino Transferase (AST) 76 U/L (15-37) H Alanine Aminotransferase (ALT) 45 U/L (12-78) Alkaline Phosphatase 115 U/L (46-116) Total Protein 7.4 G/DL (6.4-8.2) Albumin 3.0 G/DL (3.4-5.0) L Globulin 4.4 g/dL Albumin/Globulin Ratio 0.7 (1.0-2.7) L Lipase 509 U/L (73-393) H Urine Color Pale yellow Urine Appearance Clear Urine pH 8 (4.5-8.0) Urine Specific [place] 1.015 (1.005-1.035) Urine Protein Negative (NEGATIVE) Urine Glucose (UA) Negative (NEGATIVE) Urine Ketones Negative (NEGATIVE) Urine Blood Negative (NEGATIVE) Urine Nitrite Negative (NEGATIVE) Urine Bilirubin Negative (NEGATIVE) Urine Urobilinogen Normal MG/DL (0.0-1.0) Urine Leukocyte Esterase Negative (NEGATIVE) CT/MRI/US Diagnostic Results CT/MRI/US Diagnostic Results : Impression Procedure: CT Abdomen Pelvis w/Contrast CT ABDOMEN + PELVIS With Contrast: Compared to 07/12/19. A somewhat irregular area of decreased density is seen in the medial segment of the left lobe of the liver. Enhancing vessels appear to course through this area and this is likely related to some focal fatty infiltration. This has a similar appearance compared to the prior exam. Small low-density lesions in the liver which are too small to adequately characterize. Small low-density lesions in the kidneys which are too small to adequately characterize. The intra-abdominal organs are otherwise unremarkable. The appendix is normal. No evidence for bowel related inflammatory changes. No evidence for significant bowel loop dilation to suggest an obstructive process. Trace amount of nonspecific free fluid in the pelvis. No evidence for free intraperitoneal gas. Mild atelectasis at the lung bases. Infrarenal abdominal aortic aneurysm measuring 3.5 cm in maximum transverse dimensions. No evidence for surrounding hematoma to suggest aneurysm rupture. No evidence for aortic dissection. Sclerosis of the femoral heads which is likely related to avascular necrosis. Degenerative changes of the thoracolumbar spine. Dictated By: Zaheer Bullock MD Electronically Signed By: Signed Date/Time CC: Disposition: HOME, SELF-CARE Condition: Stable Scripts Lidocaine Patch* (Lidoderm Patch*) 1 Each Adh..patch 1 PATCH TOPIC DAILY, #7 PATCH 0 Refills Patch(es) may remain in place for up to 12 hours in any 24-hour period. Prov: Kip Malcolm MD 07/27/19 Methocarbamol* (ROBAXIN-750*) 750 Mg Tablet 750 MG PO QID, #28 TAB 0 Refills Prov: Kip Malcolm MD 07/27/19 Ibuprofen* (MOTRIN*) 600 Mg Tablet 600 MG ORAL Q8H PRN for For Pain, #30 TAB 0 Refills Prov: Kip Malcolm MD 1/6/20 Referrals: [facility] Patient Instructions: Abdominal Aortic Aneurysm, Back Pain, Adult, [id number] Additional Instructions: The patient was provided with discharge instructions, notified to follow-up with a primary care doctor and or specialist in the next 24-48 hours, and to return to the ED if they have worsening of their symptoms. Please note that this report is being documented using DRAGON technology. This can lead to erroneous entry secondary to incorrect interpretation by the dictating instrument. PLEASE FOLLOW-UP WITH VASCULAR SURGERY YOU HAVE AN ANEURYSM 3.5CM NEEDS TO BE FOLLOWED OVER TIME. PLEASE QUIT SMOKING Kip Malcolm MD Jul 26, 2019 23:03
[2019-07-26] MEDS ORDERED: Hydromorphone 0.5mg/0.5ml inj IVP ONE (23:15)
[2019-07-26] MEDS ORDERED: Acetaminophen 500mg (ES) tab ORAL ONE (23:15)
[2019-07-26] MEDS ORDERED: Omnipaque-300 100ml vial INJ PRN (23:15)
[2019-07-26 23:48] LABS: APPEARANCE,URINE CLEAR; BILIRUBIN, URINE NEGATIVE (NEGATIVE); COLOR,URINE PALE YELLOW; GLUCOSE, URINE (UA) NEGATIVE (NEGATIVE); KETONES,URINE NEGATIVE (NEGATIVE); LEUKOCYTE ESTERASE ,URINE NEGATIVE (NEGATIVE); NITRITE,URINE NEGATIVE (NEGATIVE); PH,URINE 8 (4.5-8.0); PROTEIN,URINE NEGATIVE (NEGATIVE); UROBILINOGEN,URINE NORMAL MG/DL (0.0-1.0)
[2019-07-26 23:52] LABS: BASOPHILS % (AUTO) 1.4 % (0.0-2.0); EOSINOPHILS % (AUTO) 1.8 % (0.0-3.0); HEMATOCRIT 35.6 % (42.0-52.0); HEMOGLOBIN 12.4 G/DL (14.2-18.0); LYMPHOCYTES % (AUTO) 40.6 % (20.0-45.0); MEAN CORPUSCULAR VOLUME 93 FL (80-99); MONOCYTES % (AUTO) 8.1 % (1.0-10.0); NEUTROPHILS % (AUTO) 48.1 % (45.0-75.0); PLATELET COUNT 202 K/UL (150-450); RED BLOOD COUNT 3.85 M/UL (4.70-6.10); RED CELL DISTRIBUTION WIDTH 12.6 % (11.6-14.8)
[2019-07-27] LABS: ANION GAP 8 mmol/L (5-15); BLOOD UREA NITROGEN 17 mg/dL (7-18); CALCIUM 8.6 MG/DL (8.5-10.1); CARBON DIOXIDE 31 MMOL/L (21-32); CHLORIDE 110 MMOL/L (98-107); CREATININE 0.8 MG/DL (0.55-1.30); POTASSIUM 3.2 MMOL/L (3.5-5.1); SODIUM 149 MMOL/L (136-145)
[2019-07-27 00:05] LABS: ALANINE AMINOTRANSFERASE 45 U/L (12-78); ALBUMIN/GLOBULIN RATIO 0.7 (1.0-2.7); ALKALINE PHOSPHATASE 115 U/L (46-116); ASPARTATE AMINO TRANSFERASE 76 U/L (15-37); BILIRUBIN,TOTAL 0.3 MG/DL (0.2-1.0)
--- NOTE | 2019-07-27 01:25 | Diagnostic Imaging Report ---
Clinical Indication: Abdominal pain Technique: No oral contrast utilized, per emergency room physician request IV administration nonionic contrast. Venous phase spiral acquisition obtained through the abdomen and pelvis. Multiplanar reconstructions were generated. Total dose length product 556 mGycm. CTDIvol(s) 10 mGy. Dose reduction achieved using automated exposure control Comparison: 07/12/2019 CT angiogram Findings: The appendix is normal. No small bowel distention. No evidence of diverticulosis or diverticulitis. Distal esophagus, stomach, duodenum are unremarkable. There is trace pelvic fluid. No free or loculated intraperitoneal gas. There is an area of hypoattenuation involving segments 4A and 4B of the left hepatic lobe. This is somewhat ill-defined, measures roughly 5 x 2.2 x 4.3 cm. This is also evident, although less so, on the previous study. Liver also demonstrates scattered subcentimeter low-attenuation lesions which are too small to characterize. The gallbladder, bile ducts, pancreas, spleen, adrenals, right kidney are unremarkable. Subcentimeter low-attenuation lesions are seen in the left kidney which are too small to characterize. No retroperitoneal or mesenteric mass or adenopathy. There is a focal eccentric aneurysm of the infrarenal abdominal aorta which measures 3.6 cm maximal dimension, also demonstrated previously. The common iliac arteries are ectatic bilaterally. The bladder is unremarkable. No pelvic mass or adenopathy. The bones demonstrate mild degenerative spondylosis changes. There are focal sclerotic changes of the femoral heads and slight narrowing of the bilateral hip joints. The included lung bases demonstrate posterior dependent atelectatic changes. The heart is borderline enlarged. Impression: No definite acute abnormality Area of hypoattenuation in the left hepatic lobe, similar to prior 07/12/2019 study, most likely an area of geographic focal fatty change 3.6 cm eccentric saccular infrarenal abdominal aortic aneurysm. No evidence of leakage or rupture Sclerotic changes of the bilateral femoral heads, raises possibility of avascular necrosis. Consider further evaluation with plain radiographs Posterior dependent pulmonary atelectatic changes Cardiomegaly Trace free pelvic fluid, nonspecific Subcentimeter low-attenuation liver and left renal lesions, too small to characterize, most likely benign simple cysts. No further follow-up necessary. This agrees with the preliminary interpretation provided overnight by [facility]. The CT scanner at [facility] is accredited by the [employer] and the scans are performed using protocols designed to limit radiation exposure to as low as reasonably achievable to attain images of sufficient resolution adequate for diagnostic evaluation.
[2019-07-27] MEDS ORDERED: ROBAXIN-750750 MG PO (02:02)
[2019-07-27] MEDS ORDERED: LIDODERM700 M1 TOPIC (02:02)
[2019-07-27] MEDS ORDERED: IBUPROFEN600 MG ORAL (02:02)
[2019-07-27 02:15] VITALS: BP 150/74
[2019-07-27] MEDS ORDERED: DiphenhydrAMINE 50mg/ml Inj IVP ONE (02:15)
--- NOTE | 2019-07-27 02:15 | NUR ---
ER DISCHARGE NOTE: Patient is cleared to be discharged per ERMD, pt is aox4, on room air, with stable vital signs. pt was given dc and prescription instructions, pt was able to verbalize understanding, pt id band and iv site removed without complications. pt is able to ambulate with steady gait. pt took all belongings.
== END 2019-07-27 02:15 | disposition home or self-care (01) ==
LOC: EDBD 22:53 → EDUNIT# 22:53 → EMR 23:27
DX: M54.5 Low back pain (principal); E78.5 Hyperlipidemia, unspecified; F17.200 Nicotine dependence, unspecified, uncomplicated; J98.11 Atelectasis
CPT/HCPCS: 36415; 74177; 80053; 81003; 83690; 85025; 85610; 85730; 96361; 96374; 96375; J1170; J1200; J2405; J7030; Q9967; Z7502; 99284

== ENCOUNTER 2020-01-05 20:53 | Emergency (ER) | payer MEDICAID ==
[~2020-01-05] VITALS: Ht 185.4 cm; Wt 70.8 kg
[~2020-01-05 20:53] MED LIST changes: +IBUPROFEN600 MG ORAL; +LIDODERM700 M1 TOPIC; +ROBAXIN-750750 MG PO
--- NOTE | 2020-01-05 21:54 | Emergency Room Report ---
History of Present Illness General Chief Complaint: Laceration Present Illness HPI Patient is a 59-year-old male presents after increased right-sided knee pain as well as limb pain after recent injury. He had recent alcohol intake and had fallen onto his face. He reports having prior history of knee replacement surgery. Had last tetanus vaccine approximately 5 years ago. Denies loss of consciousness. He states he tripped while walking. Had recent been having increased pain to the right knee after falling. He denies any other locations of injury denies any headache or nausea or vomiting. He had a recent ER visit after alcohol intoxication. Denies any current complaints. Allergies: Coded Allergies: No Known Allergies (Unverified , 03/16/19) COVID-19 Screening Contact w/high risk pt: No Recent Travel to affected area: No Experienced COVID-19 symptoms?: No COVID-19 Testing performed DRUG AND ALCOHOL TREATMENT SPECIALIST: No Patient History Past Medical History: see triage record Reviewed Nursing Documentation: PMH: Agreed; PSxH: Agreed Nursing Documentation-PMH Hx Hypertension: Yes - HYPERLIPIDEMIA History Of Psychiatric Problem: Yes Review of Systems All Other Systems: negative except mentioned in HPI Physical Exam Vital Signs Date Time Temp Pulse Resp B/P (MAP) Pulse Ox O2 Delivery O2 Flow Rate FiO2 01/05/20 20:53 97.5 86 18 141/85 (103) 98 Room Air Sp02 EP Interpretation: reviewed, normal General Appearance: normal inspection, well appearing, no apparent distress, alert, GCS 15 Head: atraumatic ENT: normal ENT inspection, hearing grossly normal, normal voice, other - Superficial laceration to the lower lip approximately 0.5 cm. Neck: normal inspection, full range of motion, supple, no bony tend Respiratory: normal inspection, lungs clear, normal breath sounds, no respiratory distress, no retraction, no wheezing Cardiovascular #1: regular rate, rhythm, no edema Gastrointestinal: normal inspection, normal bowel sounds, non tender, soft, no guarding, no hernia Genitourinary: no CVA tenderness Musculoskeletal: normal inspection, back normal, normal range of motion Neurologic: alert, motor strength/tone normal, home sales service professional III-XII nml as tested, oriented x3, responsive, speech normal, normal inspection Psychiatric: normal inspection, judgement/insight normal, mood/affect normal Medical Decision Making Diagnostic Impression: Primary Impression: Alcohol intoxication Additional Impressions: Fall Laceration Contusion of right knee ER Course Patient present after fall. Differential diagnosis includes not limited to fracture, contusion, sprain among others. Patient's laceration does not appear to require suturing. Patient has up-to-date tetanus vaccine and appears to be stable for outpatient management. Patient will be discharged home. X-ray imaging was ordered due to a recent injury to his knee. Patient was able to ambulate with a steady gait despite recent alcohol intake. X-ray imaging showed postsurgical changes without evident acute fracture. Patient appears to be stable for outpatient management. He was given prescription for medications for discomfort. He was advised to continue to ice the area and follow-up with his orthopedic doctor for recheck. Patient was offered suturing for his face which he declined. Patient was advised to return if worse. The patient is advised to follow up with primary care doctor in 1-2 days. Patient is advised to return if any worsening condition or if any changes in status that are concerning. This report is dictated with [employer] armature straightener software which may occasionally lead to discrepancies related to use of this software. Last Vital Signs Date Time Temp Pulse Resp B/P (MAP) Pulse Ox O2 Delivery O2 Flow Rate FiO2 01/05/20 20:53 97.5 86 18 141/85 (103) 98 Room Air Status: improved Disposition: HOME, SELF-CARE Condition: Stable Referrals: [facility],REFERRING (PCP) Baltazar Nino MD Jan 05, 2020 21:54
[2020-01-05] MEDS ORDERED: Acetaminophen 500mg (ES) tab ORAL ONE (22:00)
[2020-01-05 22:15] VITALS: BP 149/91
[2020-01-05 22:25] VITALS: BP 149/91
--- NOTE | 2020-01-06 10:11 | Diagnostic Imaging Report ---
EXAM: X-RAY XRAY Knee 3v R CLINICAL HISTORY: Knee pain. COMPARISON: None FINDINGS: Total of 3 views of the right knee were obtained. There is total knee prosthesis in place in anatomic alignment. No sign of fracture or loosening of the hardware. [place] bony structures are intact. There is sclerotic density in the distal femoral shaft partially included. Question enchondroma or bone infarct. Joint spaces are unremarkable. Surrounding soft tissue is normal. IMPRESSION: RIGHT KNEE PROSTHESIS IN ANATOMIC ALIGNMENT. NO ACUTE FRACTURE OR MALALIGNMENT. SCLEROTIC DENSITY DISTAL FEMORAL SHAFT PARTIALLY INCLUDED. QUESTION POSSIBLE ENCHONDROMA OR BONE INFARCT.
== END 2020-01-05 22:25 | disposition home or self-care (01) ==
LOC: EDBD 20:53 → EMR 21:19
DX: S80.01XA Contusion of right knee, initial encounter (principal); F10.129 Alcohol abuse with intoxication, unspecified; Z96.651 Presence of right artificial knee joint; S01.511A Laceration without foreign body of lip, initial encounter; W01.0XXA Fall on same level from slipping, tripping and stumbling without subsequent striking against object, initial encounter; Y92.9 Unspecified place or not applicable; E78.5 Hyperlipidemia, unspecified; I10 Essential (primary) hypertension
CPT/HCPCS: 73562; Z7502; 99283

== ENCOUNTER 2020-04-30 16:23 | Emergency (ER) | payer MEDICAID ==
[~2020-04-30] VITALS: Ht 175.3 cm; Wt 72.6 kg
--- NOTE | 2020-04-30 16:39 | Emergency Room Report ---
History of Present Illness General Chief Complaint: Alcohol Intoxication Source: Medical Record, EMS Present Illness HPI Disclaimer: Please note that this report is being documented using DRAGON technology. This can lead to erroneous entry secondary to incorrect interpretation by the dictating instrument. HPI: 60-year-old male brought in after reported fall and altered mental status. Per EMS, the patient's friend called from home stating the patient had drank too much and was difficult to arouse. Also noted a fall but unsure under which circumstances. Patient is unable to provide any history at this time. Review of chart shows the patient has prior visits for alcohol abuse. No anticoagulants found in chart. PMH: Alcohol abuse PSH: Unable to obtain from patient Allergies: Unable to obtain from patient Social Hx: History of alcohol abuse in chart Allergies: Coded Allergies: No Known Allergies (Unverified , 03/16/19) COVID-19 Screening Contact w/high risk pt: No Recent Travel to affected area: No Experienced COVID-19 symptoms?: No COVID-19 Testing performed CHARGE COORDINATOR: No Nursing Documentation-PMH Past Medical History: No History, Except For Hx Hypertension: Yes - HYPERLIPIDEMIA Review of Systems All Other Systems: limited - Unable to obtain from patient due to clinical condition Physical Exam Vital Signs Date Time Temp Pulse Resp B/P (MAP) Pulse Ox O2 Delivery O2 Flow Rate FiO2 04/30/20 16:23 98.2 84 14 115/76 (89) 99 Room Air General: Somnolent, arousable to painful stimuli HEENT: Normocephalic, atraumatic. There are no scalp or face hematomas, lacerations or abrasions. No tenderness or soft tissue swelling over the facial bones. EOMI. PERRLA. No septal hematoma. No oral lacerations. No malocclusion Neck: Supple, trachea midline. Arrives without cervical collar Chest Wall: No tenderness, no deformity, no crepitus CV: RRR. S1 and S2 normal. No murmur appreciated Resp: Normal work of breathing. No cough, wheezing or crackles appreciated Abd: Soft, nontender, nondistended Skin: Intact. No abrasions, laceration or rash over the exposed skin MSK: Normal tone and bulk. No obvious deformity. Neuro: Somnolent but arousable to pain. GCS 10. Spine: There is no step-off or deformity in the cervical spine. Medical Decision Making Diagnostic Impression: Primary Impression: Alcohol intoxication ER Course 60-year-old male brought in for evaluation of altered mental status suspected alcohol abuse as well as a fall. Unknown circumstances regarding fall with sign s of trauma however CT scan was obtained to evaluate for intracranial injury. No evidence of acute intracranial injury. Alcohol level elevated though metabolic panel within normal limits. Will discharge once clinically sober and ambulatory. Laboratory Tests Test 04/30/20 17:00 Sodium Level 143 MMOL/L (136-145) Potassium Level 3.5 MMOL/L (3.5-5.1) Chloride Level 107 MMOL/L (98-107) Carbon Dioxide Level 27 MMOL/L (21-32) Anion Gap 9 mmol/L (5-15) Blood Urea Nitrogen 11 mg/dL (7-18) Creatinine 1.1 MG/DL (0.55-1.30) Estimated Glomerular Filtration Rate > 60 mL/min (>60) Glucose Level 90 MG/DL (74-106) Calcium Level 8.0 MG/DL (8.5-10.1) L Serum Alcohol 454 mg/dL CT/MRI/US Diagnostic Results CT/MRI/US Diagnostic Results : Impression Final Report EXAM: CT Head Without Intravenous Contrast CLINICAL HISTORY: TRAUMA TECHNIQUE: Axial computed tomography images of the head/brain without intravenous contrast. CTDI is 53.40 mGy and DLP is 965.40 mGy-cm. One or more of the following dose reduction techniques were used: automated exposure control, adjustment of the mA and/or kV according to patient size, use of iterative reconstruction technique. COMPARISON: Head CT dated 06/19/2019. FINDINGS: Brain: No infarction, hemorrhage or abnormal extra-axial fluid collection. No mass, mass effect, or shift of midline structures. There are mild periventricular white matter low attenuating foci, which are nonspecific but can be associated with chronic microvascular ischemic disease. Ventricles: Unremarkable. Bones/joints: No acute calvarial fracture. Soft tissues: Unremarkable. Sinuses: Unremarkable as visualized. No acute sinusitis. Mastoid air cells: Unremarkable as visualized. No mastoid effusion. Orbits are unremarkable. Right lens replacement is noted. IMPRESSION: 1. No acute intracranial abnormality. 2. Chronic changes as above. Radiologist: Niraj Ashley MD Electronically Signed: 04/30/20 17:00 Study ready at 16:52 and initial results transmitted at 17:00 Last Vital Signs Date Time Temp Pulse Resp B/P (MAP) Pulse Ox O2 Delivery O2 Flow Rate FiO2 04/30/20 16:23 98.2 84 14 115/76 (89) 99 Room Air Disposition: HOME, SELF-CARE Condition: Stable Hieu Villareal MD Apr 30, 2020 16:39
--- NOTE | 2020-04-30 16:40 | NUR ---
ED Nurse Note: Pt BIBA for ETOH intoxication. Pt is alert and orientedx1, drowsy. Pt is responsive to verbal stimuli. Pt is set up on monitor. Blood drawn and sent to lab. Pt has been seen by [facility].
[2020-04-30 17:00] VITALS: BP 119/74
[2020-04-30 17:29] LABS: ANION GAP 9 mmol/L (5-15); BLOOD UREA NITROGEN 11 mg/dL (7-18); CARBON DIOXIDE 27 MMOL/L (21-32); CHLORIDE 107 MMOL/L (98-107); CREATININE 1.1 MG/DL (0.55-1.30); POTASSIUM 3.5 MMOL/L (3.5-5.1); SODIUM 143 MMOL/L (136-145)
[2020-04-30 19:12] VITALS: BP 126/73
--- NOTE | 2020-04-30 19:30 | NUR ---
ED Nurse Note: received patient from viktor marrero. patient resting in bed with no signs of acute distress. patient ao3; arousable to name. discussed plan of care with patient; states willingness to continue with care.
--- NOTE | 2020-04-30 20:00 | NUR ---
ED Nurse Note: provided patient with nourishment; tolerated well. patient states "i want to go home". notified logan
[2020-04-30 20:30] VITALS: BP 132/72
--- NOTE | 2020-05-02 06:19 | Diagnostic Imaging Report ---
EXAM: CT Head Without Intravenous Contrast CLINICAL HISTORY: TRAUMA TECHNIQUE: Axial computed tomography images of the head/brain without intravenous contrast. CTDI is 53.40 mGy and DLP is 965.40 mGy-cm. One or more of the following dose reduction techniques were used: automated exposure control, adjustment of the mA and/or kV according to patient size, use of iterative reconstruction technique. COMPARISON: Head CT dated 06/19/2019. FINDINGS: Brain: No infarction, hemorrhage or abnormal extra-axial fluid collection. No mass, mass effect, or shift of midline structures. There are mild periventricular white matter low attenuating foci, which are nonspecific but can be associated with chronic microvascular ischemic disease. Ventricles: Unremarkable. Bones/joints: No acute calvarial fracture. Soft tissues: Unremarkable. Sinuses: Unremarkable as visualized. No acute sinusitis. Mastoid air cells: Unremarkable as visualized. No mastoid effusion. Orbits are unremarkable. Right lens replacement is noted. IMPRESSION: 1. No acute intracranial abnormality. 2. Chronic changes as above.
== END 2020-04-30 20:00 | disposition home or self-care (01) ==
LOC: EDBD 16:23 → EDUNIT# 16:23 → EMR 17:59
DX: F10.129 Alcohol abuse with intoxication, unspecified (principal); E78.5 Hyperlipidemia, unspecified
CPT/HCPCS: 36415; 70450; 80048; G0480; Z7502; 99284

== ENCOUNTER 2020-06-07 14:45 | Emergency (ER) | payer MEDICAID ==
[~2020-06-07] VITALS: Ht 177.8 cm; Wt 77.1 kg
--- NOTE | 2020-06-07 14:45 | NUR ---
ED Nurse Note: Patient was biba RA 861 d/t ETOH intoxication. Patient AAO x3, all VSS at this time.
[2020-06-07 14:55] VITALS: BP 96/65
[2020-06-07 16:19] LABS: BASOPHILS % (AUTO) 1.1 % (0.0-2.0); EOSINOPHILS % (AUTO) 0.9 % (0.0-3.0); HEMATOCRIT 31.8 % (42.0-52.0); HEMOGLOBIN 11.1 G/DL (14.2-18.0); LYMPHOCYTES % (AUTO) 26.7 % (20.0-45.0); MEAN CORPUSCULAR VOLUME 95 FL (80-99); MONOCYTES % (AUTO) 10.9 % (1.0-10.0); NEUTROPHILS % (AUTO) 60.3 % (45.0-75.0); PLATELET COUNT 110 K/UL (150-450); RED BLOOD COUNT 3.35 M/UL (4.70-6.10); RED CELL DISTRIBUTION WIDTH 12.2 % (11.6-14.8)
[2020-06-07 16:37] LABS: ANION GAP 15 mmol/L (5-15); BLOOD UREA NITROGEN 16 mg/dL (7-18); CALCIUM 8.5 MG/DL (8.5-10.1); CARBON DIOXIDE 23 MMOL/L (21-32); CHLORIDE 104 MMOL/L (98-107); CREATININE 1.1 MG/DL (0.55-1.30); POTASSIUM 3.3 MMOL/L (3.5-5.1); SODIUM 142 MMOL/L (136-145)
[2020-06-07 16:41] LABS: ALANINE AMINOTRANSFERASE 62 U/L (12-78); ALBUMIN 3.4 G/DL (3.4-5.0); ALKALINE PHOSPHATASE 117 U/L (46-116); ASPARTATE AMINO TRANSFERASE 138 U/L (15-37); BILIRUBIN,TOTAL 0.6 MG/DL (0.2-1.0)
--- NOTE | 2020-06-07 16:42 | NUR ---
ED Nurse Note: Patient aken to CT via bishnu
--- NOTE | 2020-06-07 16:48 | NUR ---
ED Nurse Note: patient is back, VSS at this time NAD noted
--- NOTE | 2020-06-07 17:14 | Diagnostic Imaging Report ---
EXAM: CT Head Without Intravenous Contrast CLINICAL HISTORY: ALOC TECHNIQUE: Axial computed tomography images of the head/brain without intravenous contrast. CTDI is 53.4 mGy and DLP is 1045.5 mGy-cm. One or more of the following dose reduction techniques were used: automated exposure control, adjustment of the mA and/or kV according to patient size, use of iterative reconstruction technique. COMPARISON: 04/30/2020. FINDINGS: Brain: Small vessel disease of aging. Physiologic calcifications within the basal ganglia. No abnormal extra-axial collection. No hemorrhage. Ventricles: There is prominence of the ventricular system, cortical sulci, basilar cisterns, compatible with age related atrophy. Bones/joints: Calvarium is within normal limits. No acute fracture. Soft tissues: Unremarkable. Sinuses: Visualized sinuses are unremarkable. Mastoid air cells: Mastoid air cells are well pneumatized. Other findings: Axial and coronal images were provided. IMPRESSION: 1. Age-related changes. 2. No acute intracranial pathology. 3. If there is concern for etiology such as early acute lacunar infarcts, magnetic resonance imaging of the brain with diffusion-weighted sequences should be performed for follow-up.
--- NOTE | 2020-06-07 17:44 | NUR ---
ED Nurse Note: sandwich and juice were provided
--- NOTE | 2020-06-07 17:52 | Emergency Room Report ---
History of Present Illness General Chief Complaint: Alcohol Intoxication Source: EMS Present Illness HPI 60-year-old male with history of alcohol intoxication brought in by paramedics due to alcohol intoxication. Upon arrival patient speaking in full sentences however appears to be sleepy. Denies any headache and head trauma. Reports that he fell earlier today however does not recall. Denies any drug use, appears to be atraumatic. Denies chest pain, shortness of breath, no other associate symptoms. EKG that was done on patient June 2019 appears to be similar to the EKG that was done today. Allergies: Coded Allergies: No Known Allergies (Unverified , 03/16/19) COVID-19 Screening Contact w/high risk pt: No Recent Travel to affected area: No Experienced COVID-19 symptoms?: No COVID-19 Testing performed ASSISTANT CASE MANAGER: No - unk Patient History Past Medical History: see triage record Past Surgical History: unable to obtain Pertinent Family History: unable to obtain Social History: Reports: alcohol use Reviewed Nursing Documentation: PMH: Agreed; PSxH: Agreed Nursing Documentation-PMH Past Medical History: No History, Except For Hx Hypertension: Yes History Of Psychiatric Problem: Yes Review of Systems All Other Systems: negative except mentioned in HPI Physical Exam Vital Signs Date Time Temp Pulse Resp B/P (MAP) Pulse Ox O2 Delivery O2 Flow Rate FiO2 06/07/20 14:41 98.1 87 16 96/65 (75) 98 Room Air Sp02 EP Interpretation: reviewed, normal General Appearance: no apparent distress, alert, GCS 15, non-toxic Head: normocephalic, atraumatic Eyes: bilateral eye normal inspection, bilateral eye PERRL ENT: hearing grossly normal, normal pharynx, no angioedema, normal voice Neck: full range of motion, supple/symm/no masses Respiratory: chest non-tender, lungs clear, normal breath sounds, speaking full sentences Cardiovascular #1: regular rate, rhythm, no edema Cardiovascular #2: 2+ carotid (R), 2+ carotid (L), 2+ radial (R), 2+ radial (L), 2+ dorsalis pedis (R), 2+ dorsalis pedis (L) Gastrointestinal: normal bowel sounds, non tender, soft, non-distended, no guarding, no rebound Genitourinary: no CVA tenderness Musculoskeletal: back normal, no calf tenderness Neurologic: alert, motor strength/tone normal, oriented x3, sensory intact, responsive, speech normal Psychiatric: judgement/insight normal, memory normal, mood/affect normal, no suicidal/homicidal ideation Skin: no rash Lymphatic: no adenopathy Medical Decision Making PA Attestation All my diagnosis and treatment plans were reviewed ad discussed with my supervising physician Dr. Evangelista Diagnostic Impression: Primary Impression: Acute alcoholic intoxication ER Course 60-year-old male with history of alcohol intoxication brought in by paramedics due to alcohol intoxication. Upon arrival patient speaking in full sentences however appears to be sleepy. Denies any headache and head trauma. Reports that he fell earlier today however does not recall. Denies any drug use, appears to be atraumatic. Denies chest pain, shortness of breath, no other associate symptoms. EKG that was done on patient June 2019 appears to be similar to the EKG that was done today. Ddx considered but are not limited to: Alcohol intoxication with altered level of consciousness, alcohol intoxication causing pancreatitis, alcohol abuse, multi drug use and alcohol intoxication Vital signs: are WNL, pt. is afebrile H&PE are most consistent with: acute alcohol intoxication ORDERS: CBC, CMP, troponin, chest x-ray, EKG, serum alcohol level ER intervention: NS bolus Patient was evaluated in the context of the global COVID-19 pandemic, which necessitated consideration that the patient might be at risk for infection with the SARS-COV-2 virus that causes COVID-19. Institutional protocols and algorithms that pertain to the evaluation of patients at risk for COVID-19 are in a state of rapid change based on information relieved by multiple regulatory bodies including the CDC and the federal and state organizations. These policies and algorithms were followed during the patient's care in the ED. DISCHARGE: At this time pt. is stable for d/c to home. Will provide printed patient care instructions, and any necessary prescriptions. Care plan and follow up instructions have been discussed with the patient prior to discharge. Patient was eating and drinking okay, was speaking full sentences, advised to go to, ambulating fine. Advised him to stop drinking alcohol. If worsening symptoms return to the emergency room EKG Diagnostic Results Rate: normal Rhythm: NSR ST Segments: no acute changes Other Impression No acute ST changes ASA given to the pt in ED: No PA Scribe Text right BBB Chest X-Ray Diagnostic Results Chest X-Ray Diagnostic Results : Chest X-Ray Ordered: Yes # of Views/Limited/Complete: 1 View Indication: Other EP Interpretation: Yes PA Xray: Interpretation reviewed, by supervising MD, and agrees with findings. Interpretation: no consolidation, no effusion, no pneumothorax, other - No signs of aspiration noted Impression: No acute disease Electronically Signed by: Maximino Mcdonnell PA-C CT/MRI/US Diagnostic Results CT/MRI/US Diagnostic Results : Imaging Test Ordered: Head CT no contrast Impression COMPARISON: 04/30/2020. FINDINGS: Brain: Small vessel disease of aging. Physiologic calcifications within the basal ganglia. No abnormal extra-axial collection. No hemorrhage. Ventricles: There is prominence of the ventricular system, cortical sulci, basilar cisterns, compatible with age related atrophy. Bones/joints: Calvarium is within normal limits. No acute fracture. Soft tissues: Unremarkable. Sinuses: Visualized sinuses are unremarkable. Mastoid air cells: Mastoid air cells are well pneumatized. Other findings: Axial and coronal images were provided. IMPRESSION: 1. Age-related changes. 2. No acute intracranial pathology. 3. If there is concern for etiology such as early acute lacunar infarcts, magnetic resonance imaging of the brain with diffusion-weighted sequences should be performed for follow-up. Last Vital Signs Date Time Temp Pulse Resp B/P (MAP) Pulse Ox O2 Delivery O2 Flow Rate FiO2 06/07/20 14:55 98.1 16 96/65 98 Room Air 06/07/20 14:55 87 Disposition: HOME, SELF-CARE Condition: Stable Referrals: [facility],REFERRING (PCP) Patient Instructions: Alcohol Abuse and Nutrition Maximino Peterson Jun 07, 2020 17:52
[2020-06-07 18:02] VITALS: BP 96/65
--- NOTE | 2020-06-08 15:29 | Cardiology Report ---
APPROVED REPORT EKG Measurement Heart [id number] <Conclusion> Normal sinus rhythm Right bundle branch block Left anterior fascicular block Bifascicular block Abnormal ECG
--- NOTE | 2020-06-08 16:47 | Diagnostic Imaging Report ---
Indication: Chest pain Technique: XRAY Chest 1v Comparison: None Findings: Heart is enlarged. Mediastinal contours are sharp.. There is no focal airspace consolidation, pneumothorax or pleural effusion. Osseous structures demonstrate no acute abnormality. Impression: No radiographic evidence of acute cardiopulmonary disease. Cardiomegaly
== END 2020-06-07 18:02 | disposition home or self-care (01) ==
LOC: EDBD 14:45 → EMR 15:05
DX: F10.129 Alcohol abuse with intoxication, unspecified (principal); I10 Essential (primary) hypertension; Y90.8 Blood alcohol level of 240 mg/100 ml or more; W19.XXXA Unspecified fall, initial encounter; Y93.9 Activity, unspecified; Y92.9 Unspecified place or not applicable
CPT/HCPCS: 36415; 70450; 71045; 80053; 83690; 84484; 85025; 93005; 96361; 96374; 96375; G0480; J2405; J7030; S0028; Z7502; 99284